=== PATIENT | male | born 1995 | race Caucasian/White ===

== ENCOUNTER 2022-03-31 09:53 | Outpatient (CLI) | payer BC, SELFPAY ==
--- NOTE | 2022-03-31 11:36 | W.ANESCHARGE ---
Anesthesia Charges Start Date/Time Anesthesia Start Date: 03/31/22 Anesthesia Start Time: 11:14 Stop Date/Time Anesthesia Stop Date: 03/31/22 Anesthesia Stop Time: 11:32 Summary Emergency: No
== END 2022-03-31 09:54 | disposition home or self-care (01) ==
LOC: OP CLINIC 09:54
PROVIDERS: Visit Provider Internal Medicine Gastroenterology
DX: K92.1 Melena (principal); K64.8 Other hemorrhoids; K64.4 Residual hemorrhoidal skin tags
CPT/HCPCS: 45378; 811; J2704